=== PATIENT | male | born 1980 | race Caucasian/White ===

== ENCOUNTER 2022-11-03 23:20 | Emergency (ER) | payer MEDICARE, MEDICAID, SELFPAY ==
[2022-11-03 23:22] VITALS: BP 150/89; PULSE 96; RESP 18; TEMP 36.9; O2SAT 98; BMI 29.0
--- NOTE | 2022-11-03 23:27 | W.ED.ALCOHOL ---
HPI - Alcohol General: Chief Complaint: Psychiatric Symptoms Stated Complaint: SI Time Seen by Provider: 11/03/22 23:22 Source: patient and EMS Mode of arrival: EMS Limitations: no limitations History of Present Illness: 42-year-old male who is here with EMS. He is very intoxicated states he has been drinking heavily tonight states that he had made statements to the neighbor that he had been feeling suicidal. Neighbors called EMS stating that he was claiming that he did not want to live anymore and that he was going to shoot himself. Patient here is quite intoxicated is not really answering any questions Associated symptoms: Reports depression; Deny abdominal pain, nausea, suicidal ideation or vomiting Review of Systems Const: Denies: fever(s), chills, body aches or change in appetite ENMT: Denies: throat pain or dental pain Card: Denies: chest pain Resp: Denies: dyspnea GI: Denies: abdominal pain, nausea, vomiting or diarrhea Musc: Denies: neck pain or back pain Skin/Breast: Denies: rash Neuro: Denies: headache(s) Psych: Reports: depression; Denies: suicidal ideation or homicidal ideation Physical Exam Const: COMMON NORMALS: no acute distress, patient oriented x3 and healthy appearing OTHER: Intoxicated HENMT: COMMON NORMALS: normocephalic and atraumatic HEAD & SCALP: normocephalic and atraumatic Eye: COMMON NORMALS: Equal, round and reactive pupils present and EOMs intact bilaterally PUPIL: Yes Equal, round and reactive pupils present Neck/C-Spine: COMMON NORMALS: full ROM and supple Chest: COMMONS NORMALS: normal inspection of the chest and normal palpation of entire chest wall Resp: COMMON NORMALS: normal respiratory effort, No retractions, No use of accessory muscles and clear to auscultation bilaterally AUSCULTATION: clear to auscultation bilaterally Cardio: COMMON NORMALS: regular rate, regular rhythm and No murmurs present (Cardio) RATE: regular rate RHYTHM: regular rhythm GI: COMMON NORMALS: Normal to inspection, nondistended, normoactive bowel sounds present, Soft to palpation, non-tender and no masses PALPATION: Yes Soft to palpation Extremity: COMMON NORMALS: normal to inspection and full ROM Neuro: COMMON NORMALS: patient oriented x3, moves all extremities and no focal motor deficits Psych: COMMON NORMALS: mental status grossly normal, Normal thought process present and cooperative THOUGHT PROCESS: Normal thought process present Skin: COMMON NORMALS: no rashes or lesions noted and no wounds GENERAL SKIN EXAM: no rashes or lesions noted Course Vital Signs: Vital signs: Vital Signs Temperature 98.4 F 11/03/22 23:22 Pulse Rate 96 11/03/22 23:22 Respiratory Rate 18 11/04/22 02:11 Blood Pressure 150/89 11/03/22 23:22 Pulse Oximetry 98 11/03/22 23:22 Oxygen Delivery Me thod Room Air 11/04/22 02:11 MDM - Alcohol Medical Decision Making Patient presents with ALK intoxication with suicidal ideations. Patient was observed here for 5 hours he is now more clinically sober did try to speak to him he is being very avoidant will answer questions if he has guns in the house. I did have evaluated by the psychiatrist and he did the same the psychiatrist and I did speak to Dr. Smith after evaluated patient and felt that at this time that he needs to be under 96-hour hold and admitted with the statements he had made previously will admit him at this time. Medical Records I reviewed the patient's medical records. Lab Data I reviewed the patient's lab results. 11/03/22 23:58 11/03/22 23:58 Laboratory Results WBC 10.8 10^3/uL (4.0-10.0) H 11/03/22 23:58 RBC 5.43 10^6/uL (4.1-5.3) H 11/03/22 23:58 Hgb 17.3 g/dL (11.7-16.6) H 11/03/22 23:58 Hct 50.7 % (42.0-52.0) 11/03/22 23:58 MCV 93.4 fl (80-94) 11/03/22 23:58 MCH 31.9 pg (28.0-34.0) 11/03/22 23:58 MCHC 34.1 g/dL (30.0-36.0) 11/03/22 23:58 RDW 12.8 % (12.1-15.1) 11/03/22 23:58 Plt Count 263 10^3/cmm (130-400) 11/03/22 23:58 MPV 8.9 fL (7.4-10.4) 11/03/22 23:58 Neut % (Auto) 60.5 % 11/03/22 23:58 Lymph % (Auto) 30.0 % 11/03/22 23:58 Williamson % (Auto) 7.8 % 11/03/22 23:58 Eos % (Auto) 0.8 % 11/03/22 23:58 Baso % (Auto) 0.6 % 11/03/22 23:58 Neut # (Auto) 6.52 10^3/uL (1.8-7.7) 11/03/22 23:58 Lymph # (Auto) 3.2 10^3/uL (0.8-4.8) 11/03/22 23:58 Williamson # (Auto) 0.8 10^3/uL (0.2-0.9) 11/03/22 23:58 Eos # (Auto) 0.1 10^3/uL (0.0-0.8) 11/03/22 23:58 Baso # (Auto) 0.1 10^3/uL (0.0-0.1) 11/03/22 23:58 Nucleated RBC % (auto) 0 % 11/03/22 23:58 Nucleated RBCs # 0.0 /100WBC 11/03/22 23:58 Sodium 139 mmol/L (136-145) 11/03/22 23:58 Potassium 3.6 mmol/L (3.5-5.1) 11/03/22 23:58 Chloride 103 mmol/L (98-107) 11/03/22 23:58 Carbon Dioxide 18 mmol/L (22-29) L 11/03/22 23:58 Anion Gap 21.6 (5-19) H 11/03/22 23:58 BUN 12 mg/dL (6-20) 11/03/22 23:58 Creatinine 1.0 mg/dL (0.7-1.2) 11/03/22 23:58 GFR Calculation 81.6 mL/min (90-130) L 11/03/22 23:58 Glucose 139 mg/dL (65-115) H 11/03/22 23:58 Calculated Osmolality 290 mOsm/kg (285-295) 11/03/22 23:58 Calcium 9.2 mg/dL (8.5-10.5) 11/03/22 23:58 Total Bilirubin 0.7 mg/dL (0.15-1.2) 11/03/22 23:58 AST 23 U/L (0-40) 11/03/22 23:58 ALT 36 U/L (0-41) 11/03/22 23:58 Alkaline Phosphatase 57 U/L (40-130) 11/03/22 23:58 Total Protein 7.4 g/dL (6.6-8.7) 11/03/22 23:58 Albumin 4.6 g/dL (3.5-5.2) 11/03/22 23:58 Globulin 2.8 g/dL (1.3-4.6) 11/03/22 23:58 Salicylates < 0.3 mg/dL (3-10) L 11/03/22 23:58 Acetaminophen < 5.0 ug/mL (10-30) L 11/03/22 23:58 Ethyl Alcohol 244 mg/dL (0-10) H 11/03/22 23:58 Discharge Plan Discharge Patient Disposition: Admitted As Inpatient Clinical Impression: Suicidal ideation, Alcohol intoxication Condition: Stable Prescriptions: No Action albuterol sulfate 90 mcg/actuation HFA aerosol inhaler 2 puff inhalation Q8H 30 Days Qty: 8.5 6RF fluticasone propion-salmeterol [Advair Diskus] 100-50 mcg/dose blister with device 1 inh inhalation BID 30 Days Qty: 60 6RF Coding Level of Care Code ED Tape Recorder Repairer for Rosanne Apple
[2022-11-04 00:08] LABS: Basophils # 0.1 10^3/uL (0.0-0.1); Basophils % 0.6 %; Eosinophils # 0.1 10^3/uL (0.0-0.8); Eosinophils % 0.8 %; Hematocrit 50.7 % (42.0-52.0); Hemoglobin 17.3 g/dL (11.7-16.6); Lymphocytes # 3.2 10^3/uL (0.8-4.8); Mean Corpuscular HGB Conc 34.1 g/dL (30.0-36.0); Mean Corpuscular Hemoglobin 31.9 pg (28.0-34.0); Mean Corpuscular Volume 93.4 fl (80-94); Mean Platelet Volume 8.9 fL (7.4-10.4); Monocytes # 0.8 10^3/uL (0.2-0.9); Monocytes % 7.8 %; Neutrophils # 6.52 10^3/uL (1.8-7.7); Neutrophils % 60.5 %; Nucleated Red Blood Cells % 0 %; Platelet Count 263 10^3/cmm (130-400); Red Blood Count 5.43 10^6/uL (4.1-5.3); Red Cell Distribution Width 12.8 % (12.1-15.1); White Blood Count 10.8 10^3/uL (4.0-10.0)
[2022-11-04 00:29] LABS: Alanine Aminotransferase 36 U/L (0-41); Albumin Level 4.6 g/dL (3.5-5.2); Alcohol Level 244 mg/dL (0-10); Alkaline Phosphatase 57 U/L (40-130); Anion Gap 21.6 (5-19); Aspartate Amino Transferase 23 U/L (0-40); Blood Urea Nitrogen 12 mg/dL (6-20); Calcium 9.2 mg/dL (8.5-10.5); Carbon Dioxide 18 mmol/L (22-29); Chloride 103 mmol/L (98-107); Globulin 2.8 g/dL (1.3-4.6); Glomerular Filtration Rate 81.6 mL/min (90-130); Glucose 139 mg/dL (65-115); Osmolality Calculated 290 mOsm/kg (285-295); Potassium 3.6 mmol/L (3.5-5.1); Sodium 139 mmol/L (136-145); Total Bilirubin 0.7 mg/dL (0.15-1.2); Total Protein 7.4 g/dL (6.6-8.7)
[2022-11-04 00:30] LABS: Acetaminophen < 5.0 ug/mL (10-30); Salicylate < 0.3 mg/dL (3-10)
[2022-11-04 02:11] VITALS: RESP 18
--- NOTE | 2022-11-04 06:20 | PC.NURSE ---
96 Hour Hold Patient Rights have been given to patient. Koko Smith,Security was present at bedside.
--- NOTE | 2022-11-04 06:55 | PC.NURSE ---
Report received from tubing oiler RN. Pt is asleep in bed, PSA at bedside. Pt is on 96 hour hold, has refused vitals and to give urine sample.
--- NOTE | 2022-11-04 09:11 | ECG_ITS ---
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 Measurements Intervals [place] Rate: 123 P: 33 DE: 116 QRS: -37 QRSD: 81 T: 3 QT: 337 QTc: 483 Interpretive Statements SINUS TACHYCARDIA WITH SHORT DE INTERVAL LEFT AXIS DEVIATION [QRS AXIS < -30] LOW QRS VOLTAGE IN PRECORDIAL LEADS [QRS DEFLECTION < 1.0 mV IN CHEST LEADS] POSSIBLE RIGHT VENTRICULAR CONDUCTION DELAY [RSR (QR) IN V1/V2] INFERIOR MYOCARDIAL INFARCTION , PROBABLY OLD [40+ ms Q WAVE AND/OR ST/T ABNORMALITY IN II/aVF] Compared to ECG 11/26/2015 18:45:57 Short DE interval now present Myocardial infarct finding now present Sinus rhythm no longer present ST (T wave) deviation no longer present Electronically Signed On 11-04-2022 13:06:53 CDT by Todd Mistry M.D. [email or web address]
[2022-11-04 09:51] LABS: SARS Covid-2 Antigen negative (Negative)
[2022-11-04] MEDS: acetaminophen 325 mg Tablet 650 MG PO (10:46)
--- NOTE | 2022-11-04 10:47 | PC.NURSE ---
WHILE AT BEDSIDE PT PROVIDED WITH TYELNOL PER PT REQUEST. PT DENIES ANY FURTHER NEEDS. PT IS CALM AND COOPERATIVE.
[2022-11-04 12:23] VITALS: BP 131/78; PULSE 82; RESP 16; TEMP 36.8; O2SAT 98
--- NOTE | 2022-11-04 12:51 | PC.NURSE ---
REPORT GIVEN TO [facility].
[2022-11-04 12:56] LABS: Amphetamines Screen Urine Negative (Negative); Barbiturates Screen Urine Negative (Negative); Benzodiazepines Screen Urine Negative (Negative); Cocaine Screen Urine Negative (Negative); Opiate Screen Urine Negative (Negative); PCP Screen Urine Negative (Negative); THC Screen Urine Negative (Negative)
--- NOTE | 2022-11-04 12:58 | ECG_ITS ---
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 Measurements Intervals [place] Rate: 67 P: 14 HI: 140 QRS: 17 QRSD: 98 T: -3 QT: 384 QTc: 406 Interpretive Statements SINUS RHYTHM WITH SINUS ARRHYTHMIA POSSIBLE RIGHT VENTRICULAR CONDUCTION DELAY [RSR (QR) IN V1/V2] No previous ECG available for comparison Electronically Signed On 11-04-2022 13:07:12 CDT by Todd Mistry M.D. [email or web address]
--- NOTE | 2022-11-04 14:20 | PC.NURSE ---
Report called to Jeanna Perry RN at [facility].
== END 2022-11-04 15:00 | disposition admitted as inpatient to this hospital (09) ==
LOC: ER 11-04 04:41 → ER IP 11-04 13:51
PROVIDERS: Emergency Medicine; Psychiatry & Neurology Psychiatry; Emergency Provider Family Medicine
DX: R45.851 Suicidal ideations (principal); F10.129 Alcohol abuse with intoxication, unspecified; Y90.8 Blood alcohol level of 240 mg/100 ml or more
CPT/HCPCS: 36415; 80053; 80306; 80307; 85025; 87426; 93005; 99285; Q3014

== ENCOUNTER → 2024-03-05 11:45 | Outpatient (BNVA) | payer MEDICARE, MEDICAID, SELFPAY | PROVIDERS: PCP Family Medicine; Referring Provider Family Medicine; Visit Provider Student in an Organized Health Care Education/Training Program | DX: Z12.11 Encounter for screening for malignant neoplasm of colon (principal) | CPT/HCPCS: 99024; 99204 ==

== ENCOUNTER 2024-04-22 12:45 | Day surgery (SDC) | payer MEDICARE, MEDICAID, SELFPAY ==
--- NOTE | 2024-04-22 13:00 | W.PM.OPSFHP ---
Same Day Surgery H&P Indication for Procedure/HPI DATE OF PROCEDURE: April 22, 2024 CHIEF COMPLAINT/INDICATIONFOR SURGICAL PROCEDURE: screening colonoscopy PREOP DIAGNOSIS: screening colonoscopy PLANNED PROCEDURE: Operation Date: 04/22/24 14:00 Proposed Procedures p Colonoscopy 74279, G0121, Z12.11(Not Applicable) - Samm Howard MD Medications/Allergies* Allergies/Adverse Reactions Allergy/AdvReac Type Severity Reaction Status Date / Time No Known Allergies Allergy Verified 03/05/24 11:48 Pertinent History/Comorbid Conditions* Medical History (Updated 02/26/24 @ 20:38 by Keenan Antonio MD) Asthma Surgical History (Updated 02/26/24 @ 20:38 by Keenan Antonio MD) History of appendectomy Family History (Updated 02/26/24 @ 20:38 by Keenan Antonio MD) Lupus Mother Social History Smoking and tobacco/nicotine status: current every day tobacco/nicotine user cigarettes Packs smoked per day: 1 Alcohol intake: former Substance/Drug Use: never Pertinent Exam Findings alert, oriented x 3, clear to auscultation bilaterally, regular rate & rhythm and procedure specific exam findings Abdomen soft, nt, nd Recommendations Surgery/Procedure today Coding Level of Care Code Acute Code for Chg Fwd
[2024-04-22 13:05] VITALS: BP 138/96; PULSE 108; RESP 20; TEMP 36.9; O2SAT 96
[2024-04-22] MEDS: sodium chloride 0.9% 1,000 ML 30 ML IV (13:17)
--- NOTE | 2024-04-22 13:26 | ANES.PREANE2 ---
Pre-Anesthetic Assessment Height/Weight: Height 1.85 m Weight 117.934 kg Temp Pulse Resp BP Pulse Ox O2 Del Method 98.4 F 108 H 20 H 138/96 96 Room Air 04/22/24 13:05 04/22/24 13:05 04/22/24 13:05 04/22/24 13:05 04/22/24 13:05 04/22/24 13:05 Preop Diagnosis: screening colonoscopy Operation Date: 04/22/24 14:00 Proposed Procedures p Colonoscopy 14027, G0121, Z12.11(Not Applicable) - Samm Howard MD Familial anesthetic complications: none Was Beta Sera taken within 24 hours: N/A Was Clonidine taken within 24 hours: N/A Last intake: Intake Last Liquid Date 04/21/24 Last Liquid Time 11:45 Last Solid Date 04/21/24 Last Solid Time 11:45 Social Tobacco (vapes and smokes x10 years) and No alcohol Exam alert, oriented x 3 and clear to auscultation bilaterally Airway Mallampati: Class III Dentition: full History/ROS No significant history except as noted Pulmonary Asthma (uses inhaler daily. Pt feels like his breathing is at baseline) CV/HEM Hypertension None reported Hepatic None reported GI None reported Metabolic None reported Musc/skel None reported Neuropsych None reported Anesthetic Plan ASA status: 2 Anesthesia: Anesthesia Evaluation and MAC Risk of > 500 ml blood loss (7ml/kg in children): No Medications/Allergies Home Medications Medication Instructions Recorded Confirmed Last Taken Type albuterol sulfate 90 mcg/actuation 2 puff inhalation Q8H 30 days #8.5 02/26/24 04/22/24 04/22/24 Rx aerosol inhaler grams fluoxetine 10 mg capsule 10 mg PO DAILY #30 caps 02/26/24 04/22/24 04/22/24 Rx fluticasone propionate 115 2 puff inhalation BID #12 grams 02/27/24 04/22/24 04/22/24 Rx mcg-salmeterol 21 mcg/actuation HFA inhaler (Advair HFA) Allergies Allergy/AdvReac Type Severity Reaction Status Date / Time No Known Allergies Allergy Verified 03/05/24 11:48 Current Medications Generic Name Dose Route Start Last Admin Trade Name Freq PRN Reason Stop Dose Admin Sodium Chloride 1,000 mls @ 30 mls/hr 04/22/24 13:00 04/22/24 13:17 Sodium Chloride 0.9% IV 04/23/24 12:59 30 mls/hr .Q24H STEVO Administration PFSH Anesthesia Medical History Asthma Surgical History History of appendectomy Family History Mother Lupus Social History Smoking and tobacco/nicotine status: current every day tobacco/nicotine user cigarettes Packs smoked per day: 1 Alcohol intake: former Substance/Drug Use: never Data Anesthesia Cardiac Studies: No Data to Display
[2024-04-22 14:11] VITALS: BP 120/71; PULSE 90; RESP 16; TEMP 36.7; O2SAT 96
[2024-04-22 14:20] VITALS: BP 132/84; PULSE 90; RESP 16; O2SAT 93
--- NOTE | 2024-04-22 14:50 | ANE.PACU2 ---
Inpatient post-anesthesia follow up: Airway intact: Yes Vital signs: Temperature 98.1 F Pulse Rate 90 Respiratory Rate 16 Blood Pressure 132/84 Pulse Oximetry 93 Oxygen Delivery Me thod Room Air Oxygen Flow Rate Fraction of Inspir ed Oxygen Hydration adequate: Yes Nausea and vomiting: No Pain level: 1 Mental status: Baseline
== END 2024-04-22 14:50 | disposition home or self-care (01) ==
PROVIDERS: PCP Family Medicine; Visit Provider Student in an Organized Health Care Education/Training Program
PROC: 0DJD8ZZ Inspection of Lower Intestinal Tract, Via Natural or Artificial Opening Endoscopic (ICD-10-PCS; CPT 45378; principal; 2024-04-22 14:00)
DX: Z12.11 Encounter for screening for malignant neoplasm of colon (principal); K57.30 Diverticulosis of large intestine without perforation or abscess without bleeding; K64.4 Residual hemorrhoidal skin tags; D12.0 Benign neoplasm of cecum; J45.909 Unspecified asthma, uncomplicated; I10 Essential (primary) hypertension; F17.210 Nicotine dependence, cigarettes, uncomplicated
CPT/HCPCS: 45380; 88305; J2704; J3490; J7030

== ENCOUNTER → 2024-05-24 09:55 | Outpatient (BNVA) | payer MEDICARE, MEDICAID, SELFPAY | PROVIDERS: PCP Family Medicine; Visit Provider Student in an Organized Health Care Education/Training Program | DX: Z09 Encounter for follow-up examination after completed treatment for conditions other than malignant neoplasm (principal) | CPT/HCPCS: 99213 ==

== ENCOUNTER → 2024-12-30 14:59 | Outpatient (BNVA) | payer MEDICARE, MEDICAID, SELFPAY | PROVIDERS: PCP Family Medicine; Visit Provider Family Medicine | DX: R53.83 Other fatigue (principal); R53.81 Other malaise; M25.50 Pain in unspecified joint; R73.09 Other abnormal glucose; Z51.81 Encounter for therapeutic drug level monitoring | CPT/HCPCS: 80053; 83036; 84439; 84443; 85025; 85651; 86038; 86431 ==

== ENCOUNTER 2025-01-18 17:07 | Emergency (ER) | payer MEDICARE, MEDICAID, SELFPAY ==
[2025-01-18 17:13] VITALS: BP 134/92; PULSE 90; RESP 16; TEMP 36.9; O2SAT 97; BMI 34.9
--- NOTE | 2025-01-18 17:41 | CTR_ITS ---
PROCEDURE INFORMATION: Exam: CT Head Without Contrast Exam date and time: 01/18/2025 5:45 PM Age: 45 years old Clinical indication: Weakness, extremity; Right; Additional info: Right arm weakness TECHNIQUE: Imaging protocol: Computed tomography of the head without contrast. Radiation optimization: All CT scans at this facility use at least one of these dose optimization techniques: automated exposure control; mA and/or kV adjustment per patient size (includes targeted exams where dose is matched to clinical indication); or iterative reconstruction. COMPARISON: No relevant prior studies available. RADIATION DOSE METRICS: Total DLP (mGy-cm): 1071.48 FINDINGS: Brain: Normal. No hemorrhage. Unremarkable white matter. No mass effect. Cerebral ventricles: No ventriculomegaly. Paranasal sinuses: Visualized sinuses are unremarkable. No fluid levels. Mastoid air cells: Visualized mastoid air cells are well aerated. Bones: Unremarkable. No acute fracture. Soft tissues: Unremarkable. CT/CT head wo con* [id number] IMPRESSION: No acute intracranial abnormality.
--- NOTE | 2025-01-18 17:59 | CTR_ITS ---
PROCEDURE INFORMATION: Exam: CT Cervical Spine Without Contrast Exam date and time: 01/18/2025 6:19 PM Age: 45 years old Clinical indication: Radiculopathy and weakness; Cervical region; Additional info: R arm radiculopathy TECHNIQUE: Imaging protocol: Computed tomography of the cervical spine without contrast. Radiation optimization: All CT scans at this facility use at least one of these dose optimization techniques: automated exposure control; mA and/or kV adjustment per patient size (includes targeted exams where dose is matched to clinical indication); or iterative reconstruction. COMPARISON: CT head wo con* [id number] 01/18/2025 5:45 PM RADIATION DOSE METRICS: Total DLP (mGy-cm): 251.97 FINDINGS: Bones: No acute fracture. Normal alignment. No significant disc bulge or herniation. No severe spinal canal stenosis. No significant neural foraminal narrowing. Lungs: Excluded from this exam. Soft tissues: Unremarkable. CT/CT cervical spin wo con* [id number] IMPRESSION: No acute cervical spine fracture.
--- NOTE | 2025-01-18 18:00 | ED_ITS ---
Documented by User: Robert Rutledge DO 01/21/25 04:01 HPI - Extremity Problem 2 General: Chief complaint: Extremity Problem,Nontraumatic Stated complaint: rt arm (3xmonths old) Time Seen by Provider: 01/18/25 17:24 History of Present Illness: 45-year-old male presents emergency room complaining of right arm pain and weakness for the last [address] Antonio for Has not had any advanced imaging from talking to them and sounds like they had talked about doing some imaging but he had not completed it. He takes 2 ibuprofen at home. No other injury. He previously had some biopsies of some lymph nodes in his neck but no cervical spine surgery. He has not seen neurosurgery or orthopedic spine surgery for this. Associated symptoms: Deny chest pain, fever(s) or rash Related Data Previous Rx's ?Medication ?Instructions ?Recorded fluoxetine 10 mg capsule 10 mg PO DAILY #30 caps 05/0 10/20 fluoxetine 20 mg capsule 20 mg PO DAILY #30 caps 05/0 25 fluticasone propionate 115 2 puff inhalation BID #12 g lyndsey 10/02/24 mcg-salmeterol 21 mcg/actuation HFA inhaler (Advair HFA) albuterol sulfate 90 mcg/actuation 2 puff inhalation Q 8H 30 days #8.5 12/30/24 aerosol inhaler grams hydrocodone 5 mg-acetaminophen 325 1 tab PO Q8H PRN pa in #7 tabs 01/18/25 mg tablet methylprednisolone 4 mg tablets in See Rx Instructions PO .COMPLEX 01/18/25 a dose pack (Medrol (Reuben)) #21 ea Allergies Allergy/AdvReac Type Severity Reaction Status Date / Time No Known Allergies Allergy Verified 01/18/25 17:15 Review of Systems 2 Const: Denies: fever(s) or chills Card: Denies: chest pain Resp: Denies: dyspnea GI: Denies: abdominal pain : Denies: dysuria, urinary frequency or urinary urgency Musc: Denies: neck pain or back pain Skin/Breast: Denies: rash PFSH ED 2 PFSH: Medical History Asthma Surgical History History of appendectomy Family History Mother Lupus Social History Smoking and tobacco/nicotine status: current every day tobacco/nicotine user cigarettes Packs smoked per day: 1 [ Other cigarette details: Trying to switch to Vaping. ] Alcohol intake: former Substance/Drug Use: never Physical Exam 2 Const: GENERAL APPEARANCE: cooperative ORIENTATION/CONSCIOUSNESS: Yes awake, Yes oriented to person, Yes oriented to place and Yes oriented to time HENMT: COMMON NORMALS: normocephalic, atraumatic and hearing grossly normal bilaterally HEAD & SCALP: normocephalic and atraumatic Resp: COMMON NORMALS: normal respiratory effort, No retractions, No use of accessory muscles and clear to auscultation bilaterally AUSCULTATION: clear to auscultation bilaterally Cardio: COMMON NORMALS: regular rate, regular rhythm and No murmurs present (Cardio) RATE: regular rate RHYTHM: regular rhythm Extremity: COMMON NORMALS: normal to inspection, capillary refill normal, no clubbing, cyanosis or edema, no calf tenderness and no pedal edema OTHER: Patient is cradling his right arm and decreased sensation in the ulnar nerve distribution of the right hand. Web Applications Developer strength decreased on the right compared to the left. No obvious deformities. Neuro: SENSORIUM/ORIENTATION: Yes oriented to person, Yes oriented to place and Yes oriented to time Skin: COMMON NORMALS: no rashes or lesions noted GENERAL SKIN EXAM: no rashes or lesions noted Course 2 Vital Signs: Vital signs: Vital Signs Temperature 98.5 F 01/18/25 17:13 Pulse Rate 82 01/18/25 20:19 Respiratory Rate 16 01/18/25 17:13 Blood Pressure 120/87 01/18/25 20:19 Pulse Oximetry 92 01/18/25 20:19 Oxygen Delivery Me thod Room Air 01/18/25 17:13 MDM - Extremity (Nontraumatic) Medical Decision Making Care signed out to Dr. Dailey at change of shift. See final notes for diagnosis and disposition. Lab Data 01/18/25 18:05 01/18/25 18:[address] 01/18/25 17:41 IMPRESSION: No acute intracranial abnormality. Cervical Spine CT 01/18/25 17:59 IMPRESSION: No acute cervical spine fracture. Elbow X-Ray 01/18/25 19:28 IMPRESSION: No acute findings. Laboratory Results WBC 10.25 10^3/uL (3.29-11.43) 01/18/25 18:05 RBC 5.49 10^6/uL (3.85-5.65) 01/18/25 18:05 Hgb 17.40 g/dL (11.27-16.99) H 01/18/25 18:05 Hct 49.9 % (37-53) 01/18/25 18:05 MCV 90.9 fl (82-101) 01/18/25 18:05 MCH 31.7 pg (27-33) 01/18/25 18:05 MCHC 34.9 g/dL (30-55) 01/18/25 18:05 RDW 13.1 % (12.1-15.1) 01/18/25 18:05 Plt Count 287 10^3/cmm (157-399) 01/18/25 18:05 MPV 8.6 fL (7.4-10.4) 01/18/25 18:05 Neut % (Auto) 63.3 % 01/18/25 18:05 Lymph % (Auto) 27.2 % 01/18/25 18:05 Price % (Auto) 6.7 % 01/18/25 18:05 Eos % (Auto) 1.9 % 01/18/25 18:05 Baso % (Auto) 0.7 % 01/18/25 18:05 Neut # (Auto) 6.49 10^3/uL (1.8-7.7) 01/18/25 18:05 Lymph # (Auto) 2.8 10^3/uL (0.8-4.8) 01/18/25 18:05 Price # (Auto) 0.7 10^3/uL (0.2-0.9) 01/18/25 18:05 Eos # (Auto) 0.2 10^3/uL (0.0-0.8) 01/18/25 18:05 Baso # (Auto) 0.1 10^3/uL (0.0-0.1) 01/18/25 18:05 Nucleated RBC % (auto) 0 % 01/18/25 18:05 Nucleated RBCs # 0.0 /100WBC 01/18/25 18:05 ESR 9 mm/hr (0-10) 01/18/25 18:05 Sodium 138 mmol/L (136-145) 01/18/25 18:05 Potassium 4.9 mmol/L (3.5-5.1) 01/18/25 18:05 Chloride 101 mmol/L (98-107) 01/18/25 18:05 Carbon Dioxide 24 mmol/L (22-29) 01/18/25 18:05 Anion Gap 17.9 (5-19) 01/18/25 18:05 BUN 16 mg/dL (6-20) 01/18/25 18:05 Creatinine 0.9 mg/dL (0.7-1.2) 01/18/25 18:05 GFR Calculation 90.8 mL/min (90-130) 01/18/25 18:05 Glucose 97 mg/dL (65-115) 01/18/25 18:05 Calculated Osmolality 287 mOsm/kg (285-295) 01/18/25 18:05 Calcium 9.8 mg/dL (8.5-10.5) 01/18/25 18:05 Total Bilirubin 0.5 mg/dL (0.15-1.2) 01/18/25 18:05 AST 16 U/L (0-40) 01/18/25 18:05 ALT 25 U/L (0-41) 01/18/25 18:05 Alkaline Phosphatase 51 U/L (40-130) 01/18/25 18:05 Total Protein 7.5 g/dL (6.6-8.7) 01/18/25 18:05 Albumin 4.4 g/dL (3.5-5.2) 01/18/25 18:05 Globulin 3.1 g/dL (1.3-4.6) 01/18/25 18:05 Discharge Plan Discharge Patient Disposition: Home Clinical Impression: Epicondylitis, lateral, right, 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 Condition: Stable Prescriptions: New hydrocodone-acetaminophen 5-325 mg tablet 1 tab PO Q8H PRN (Reason: pain) Qty: 7 0RF methylprednisolone [Medrol (Reuben)] 4 mg tablets,dose pack See Rx Instructions .ROUTE .COMPLEX Qty: 21 0RF Rx Instructions: orally per package directions No Action albuterol sulfate 90 mcg/actuation HFA aerosol inhaler 2 puff inhalation Q8H 30 Days Qty: 8.5 6RF fluoxetine 10 mg capsule 10 mg PO DAILY Qty: 30 6RF Rx Instructions: Take with 20mg capsule daily fluoxetine 20 mg capsule 20 mg PO DAILY Qty: 30 6RF Rx Instructions: Take 1 20mg cap daily with 10mg capsule for total of 30mg daily. fluticasone propion-salmeterol [Advair HFA] 115-21 mcg/actuation HFA aerosol inhaler 2 puff inhalation BID Qty: 12 6RF Rx Instructions: administer with spacer Discharge Orders: Discharge ED (Routine); Ordered 01/18/25 Ordered By: Gerson Dailey Referrals: Keenan Romero MD [Physician, Orthopedics] - 4-7 days Keenan Antonio MD [Primary Care Provider, Family Practice] - 1-3 days Patient Instructions: Paresthesia (ED), Opioid Safety, Pain Management, Patient Portal & Remigio Instructions, Lateral Epicondylitis Activity Restrictions/Additional Instructions: Medication as directed. You may alternate pain medication with Tylenol as needed. Follow-up with your doctor. You may also call orthopedic surgery on Monday for a follow-up appointment, as sometimes an injection can be beneficial. Return for fever, worsening weakness, other concerns. Print Language: Mauritanian Coding Level of Care Code ED Automobile Detailer for Chg Fwd Documented by User: Gerson Dailey, 01/18/25 20:36 HPI - Extremity Problem 2 General: Chief complaint: Extremity Problem,Nontraumatic Stated complaint: rt arm (3xmonths old) Time Seen by Provider: 01/18/25 17:24 Related Data Previous Rx's ?Medication ?Instructions ?Recorded fluoxetine 10 mg capsule 10 mg PO DAILY #30 caps 05/0 10/20 fluoxetine 20 mg capsule 20 mg PO DAILY #30 caps 050 10/20 fluticasone propionate 115 2 puff inhalation BID #12 g lyndsey 10/02/24 mcg-salmeterol 21 mcg/actuation HFA inhaler (Advair HFA) albuterol sulfate 90 mcg/actuation 2 puff inhalation Q 8H 30 days #8.5 12/30/24 aerosol inhaler grams hydrocodone 5 mg-acetaminophen 325 1 tab PO Q8H PRN pa in #7 tabs 01/18/25 mg tablet methylprednisolone 4 mg tablets in See Rx Instructions PO .COMPLEX 01/18/25 a dose pack (Medrol (Reuben)) #21 ea Allergies Allergy/AdvReac Type Severity Reaction Status Date / Time No Known Allergies Allergy Verified 01/18/25 17:15 PFSH ED 2 PFSH: Medical History Asthma Surgical History History of appendectomy Family History Mother Lupus Social History Smoking and tobacco/nicotine status: current every day tobacco/nicotine user cigarettes Packs smoked per day: 1 [ Other cigarette details: Trying to switch to Vaping. ] Alcohol intake: former Substance/Drug Use: never Course 2 Vital Signs: Vital signs: Vital Signs Temperature 98.5 F 01/18/25 17:13 Pulse Rate 82 01/18/25 20:19 Respiratory Rate 16 01/18/25 17:13 Blood Pressure 120/87 01/18/25 20:19 Pulse Oximetry 92 01/18/25 20:19 Oxygen Delivery Me thod Room Air 01/18/25 17:13 MDM - Extremity (Nontraumatic) Medical Decision Making Care signed out to Dr. Dailey at change of shift. See final notes for diagnosis and disposition. Received patient in checkout. I reexamined the patient. He is quite tender over the lateral epicondyle of the elbow. There is no palpable deformity or effusion. He does not have significant tenderness over his ulnar elbow, ulnar nerve, etc. There is some posterior interosseous nerve distribution tenderness as well in the posterior forearm. The patient has pain with gripper attacher, supination, wrist extension. It sounds like at least some of his problems are lateral epicondylitis, with or without peripheral nerve entrapment. He will be placed on a tapering dose of steroid, short course pain medication, orthopedic referral for further evaluation. CTs of his head and cervical spine do not show significant canal stenosis or foraminal stenosis. His blood work is normal here. His sed rate is 9. Lab Data 01/18/25 18:05 01/18/25 18:[address] 01/18/25 17:41 IMPRESSION: No acute intracranial abnormality. Cervical Spine CT 01/18/25 17:59 IMPRESSION: No acute cervical spine fracture. Elbow X-Ray 01/18/25 19:28 IMPRESSION: No acute findings. Laboratory Results WBC 10.25 10^3/uL (3.29-11.43) 01/18/25 18:05 RBC 5.49 10^6/uL (3.85-5.65) 01/18/25 18:05 Hgb 17.40 g/dL (11.27-16.99) H 01/18/25 18:05 Hct 49.9 % (37-53) 01/18/25 18:05 MCV 90.9 fl (82-101) 01/18/25 18:05 MCH 31.7 pg (27-33) 01/18/25 18:05 MCHC 34.9 g/dL (30-55) 01/18/25 18:05 RDW 13.1 % (12.1-15.1) 01/18/25 18:05 Plt Count 287 10^3/cmm (157-399) 01/18/25 18:05 MPV 8.6 fL (7.4-10.4) 01/18/25 18:05 Neut % (Auto) 63.3 % 01/18/25 18:05 Lymph % (Auto) 27.2 % 01/18/25 18:05 Price % (Auto) 6.7 % 01/18/25 18:05 Eos % (Auto) 1.9 % 01/18/25 18:05 Baso % (Auto) 0.7 % 01/18/25 18:05 Neut # (Auto) 6.49 10^3/uL (1.8-7.7) 01/18/25 18:05 Lymph # (Auto) 2.8 10^3/uL (0.8-4.8) 01/18/25 18:05 Price # (Auto) 0.7 10^3/uL (0.2-0.9) 01/18/25 18:05 Eos # (Auto) 0.2 10^3/uL (0.0-0.8) 01/18/25 18:05 Baso # (Auto) 0.1 10^3/uL (0.0-0.1) 01/18/25 18:05 Nucleated RBC % (auto) 0 % 01/18/25 18:05 Nucleated RBCs # 0.0 /100WBC 01/18/25 18:05 ESR 9 mm/hr (0-10) 01/18/25 18:05 Sodium 138 mmol/L (136-145) 01/18/25 18:05 Potassium 4.9 mmol/L (3.5-5.1) 01/18/25 18:05 Chloride 101 mmol/L (98-107) 01/18/25 18:05 Carbon Dioxide 24 mmol/L (22-29) 01/18/25 18:05 Anion Gap 17.9 (5-19) 01/18/25 18:05 BUN 16 mg/dL (6-20) 01/18/25 18:05 Creatinine 0.9 mg/dL (0.7-1.2) 01/18/25 18:05 GFR Calculation 90.8 mL/min (90-130) 01/18/25 18:05 Glucose 97 mg/dL (65-115) 01/18/25 18:05 Calculated Osmolality 287 mOsm/kg (285-295) 01/18/25 18:05 Calcium 9.8 mg/dL (8.5-10.5) 01/18/25 18:05 Total Bilirubin 0.5 mg/dL (0.15-1.2) 01/18/25 18:05 AST 16 U/L (0-40) 01/18/25 18:05 ALT 25 U/L (0-41) 01/18/25 18:05 Alkaline Phosphatase 51 U/L (40-130) 01/18/25 18:05 Total Protein 7.5 g/dL (6.6-8.7) 01/18/25 18:05 Albumin 4.4 g/dL (3.5-5.2) 01/18/25 18:05 Globulin 3.1 g/dL (1.3-4.6) 01/18/25 18:05 All radiology interpretation(s) finalized by discharge Discharge Plan Discharge Patient Disposition: Home Clinical Impression: Epicondylitis, lateral, right, 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 Condition: Stable Prescriptions: New hydrocodone-acetaminophen 5-325 mg tablet 1 tab PO Q8H PRN (Reason: pain) Qty: 7 0RF methylprednisolone [Medrol (Reuben)] 4 mg tablets,dose pack See Rx Instructions .ROUTE .COMPLEX Qty: 21 0RF Rx Instructions: orally per package directions No Action albuterol sulfate 90 mcg/actuation HFA aerosol inhaler 2 puff inhalation Q8H 30 Days Qty: 8.5 6RF fluoxetine 10 mg capsule 10 mg PO DAILY Qty: 30 6RF Rx Instructions: Take with 20mg capsule daily fluoxetine 20 mg capsule 20 mg PO DAILY Qty: 30 6RF Rx Instructions: Take 1 20mg cap daily with 10mg capsule for total of 30mg daily. fluticasone propion-salmeterol [Advair HFA] 115-21 mcg/actuation HFA aerosol inhaler 2 puff inhalation BID Qty: 12 6RF Rx Instructions: administer with spacer Discharge Orders: Discharge ED (Routine); Ordered 01/18/25 Ordered By: Gerson Dailey Referrals: Keenan Romero MD [Physician, Orthopedics] - 4-7 days Keenan Antonio MD [Primary Care Provider, [facility]] - 1-3 days Patient Instructions: Paresthesia (ED), Opioid Safety, Pain Management, Patient Portal & Remigio Instructions, Lateral Epicondylitis Activity Restrictions/Additional Instructions: Medication as directed. You may alternate pain medication with Tylenol as needed. Follow-up with your doctor. You may also call orthopedic surgery on Monday for a follow-up appointment, as sometimes an injection can be beneficial. Return for fever, worsening weakness, other concerns. Print Language: Mauritanian Coding Level of Care Code ED Automobile Detailer for Rosanne Apple
[2025-01-18] MEDS: ondansetron 2 mg/ML SDV 2 mL 4 MG IVP (18:08)
[2025-01-18 18:09] LABS: Hematocrit 49.9 % (37-53); Hemoglobin 17.40 g/dL (11.27-16.99); Mean Corpuscular HGB Conc 34.9 g/dL (30-55); Mean Corpuscular Hemoglobin 31.7 pg (27-33); Mean Corpuscular Volume 90.9 fl (82-101); Nucleated Red Blood Cells % 0 %; Platelet Count 287 10^3/cmm (157-399); Red Blood Count 5.49 10^6/uL (3.85-5.65); White Blood Count 10.25 10^3/uL (3.29-11.43)
[2025-01-18] MEDS: morphine 4 mg/mL SDV 1 mL IVP ×2 (18:15→20:01)
[2025-01-18 18:33] LABS: Alanine Aminotransferase 25 U/L (0-41); Albumin Level 4.4 g/dL (3.5-5.2); Alkaline Phosphatase 51 U/L (40-130); Anion Gap 17.9 (5-19); Aspartate Amino Transferase 16 U/L (0-40); Blood Urea Nitrogen 16 mg/dL (6-20); Calcium 9.8 mg/dL (8.5-10.5); Carbon Dioxide 24 mmol/L (22-29); Chloride 101 mmol/L (98-107); Creatinine Clr Calc Pharmacy 139.2894; Globulin 3.1 g/dL (1.3-4.6); Glucose 97 mg/dL (65-115); Osmolality Calculated 287 mOsm/kg (285-295); Potassium 4.9 mmol/L (3.5-5.1); Sodium 138 mmol/L (136-145); Total Protein 7.5 g/dL (6.6-8.7)
[2025-01-18 19:00] VITALS: BP 144/103; PULSE 106; O2SAT 94
--- NOTE | 2025-01-18 19:28 | XRR_ITS ---
PROCEDURE INFORMATION: Exam: XR Right Elbow Exam date and time: 01/18/2025 7:37 PM Age: 45 years old Clinical indication: Pain; Elbow; Right; Additional info: RT elbow pain; Numbness; No known injury. TECHNIQUE: Imaging protocol: Radiologic exam of the right elbow. Views: 3 or more views. COMPARISON: No relevant prior studies available. FINDINGS: Bones/joints: Normal. Soft tissues: Normal. XR/XR elbow RT min 3V* 40901 IMPRESSION: No acute findings.
[2025-01-18 19:30] VITALS: BP 144/91; PULSE 84; O2SAT 93
[2025-01-18 20:00] VITALS: BP 120/87; PULSE 84; O2SAT 94
[2025-01-18 20:19] VITALS: BP 120/87; PULSE 82; O2SAT 92
== END 2025-01-18 20:21 | disposition home or self-care (01) ==
PROVIDERS: Family Medicine; Emergency Provider Emergency Medicine; PCP Family Medicine
DX: M77.11 Lateral epicondylitis, right elbow (principal); G56.91 Unspecified mononeuropathy of right upper limb; F17.210 Nicotine dependence, cigarettes, uncomplicated
CPT/HCPCS: 36415; 70450; 72125; 73080; 80053; 85025; 85651; 96374; 96375; 96376; 99285; J1100; J1885; J2270; J2405